=== PATIENT | female | born 1965 | race African-American/Black ===

== ENCOUNTER 2023-07-25 07:13 | Outpatient (RCR) | payer BC, SELFPAY ==
--- NOTE | 2023-07-25 08:26 | OTOPEVAL1 ---
Assessment and note entered by Adams Irizarry, OTHomer/Lorie, CHT Evaluation Information Assessment Status Evaluation Diagnosis (R) UE pain Subjective Information Patient reports intermittent forearm pains on the right, dominant UE. She works at [employer] in [employer] and spends 8 hrs/day on a computer. She has been experiencing pain on the dorsum of her right forearm. She is unable to say how long she's been having this pain. She reports it affects her arm use at work and at home. She's been having difficulties with cooking and cleaning . Reported Pain Level Pain Score 0: Self Report Additional Pain Score Comments Patient reports that at rest the pain in her forearm can get down to 0/10. She reports about every couple of days it increases to 7/10. Assessment OT Clinical Summary Patient referred to outpatient OT with right UE pain. Testing today was positive for radial nerve irritation as well as signs and symptoms of lateral epicondylitis. Educated on work station ergonomics as well as began home program for massage and stretching to the forearm to promote reduced pain and improved flexibility. She demonstrates excellent understanding. Continued skilled OT indicated to progress HEP as tolerated, use of modalities, manual therapy, postural strengthening, and may use splinting as intervention to reduce repetitive strain on the wrist/finger extensors. Plan of Care Interventions Therapeutic Exercise,Manual Therapy,Therapeutic Activities,Hot Pack/Cold Pack,Ultrasound OT Services Indicated Yes Treatment Frequency and 1x/week for 4 weeks Duration These treatments will address the objective and functional deficits as defined above. The patient will be advanced safely and appropriately in order for the patient to progress towards his/her prior level of function. Additional exercises will be introduced and as well as a comprehensive home exercise program upon discharge, if needed, ?to ensure carryover of functional gains achieved in the clinic. This treatment plan has been reviewed and agreement upon by the patient.
--- NOTE | 2023-07-25 08:27 | OPREHPOC ---
Outpatient Therapy Plan of Care This is a Multidisciplinary Plan of Care that may contain components documented by all disciplines (PT, OT, and ST.) OT Problem 1 OT Problem #1 Knowledge Deficit OT Goal 1 Goal 1. Patient to be independent with instructed materials. Target Visit 4 OT Problem 2 OT Problem #2 Pain OT Goal 1 Goal 1. Patient to report reduced pain at worst to 4/ 10 or less. Target Visit 4 OT Problem 3 OT Problem #3 Impaired Strength OT Goal 1 Goal 1. Patient to be able to complete right wrist extension strengthening with 1 lb. free weight x10 reps without pain. 2. Patient to be able to complete right logistician strengthening with at least yellow theraputty x5 minutes without pain. 3. Patient to be independent with proximal stability strengthening (shoulder and scapula). Target Visit 4
--- NOTE | 2023-08-18 14:00 | PCOTNOTE ---
Patient did not show up for scheduled appointment this date. Called patient who reports she forgot to call and cancel the appointment. States she wasn't feeling well. Reports she'll be here for her re-eval next .
--- NOTE | 2023-08-24 09:56 | OTOPDC ---
Assessment and note entered by REILLY Galvez/Lorie, T Discharge Summary 08/24/23 OT Clinical Summary Patient referred to outpatient OT with right arm/ hand pain, symptoms consistent with radial nerve irritation and lateral epicondylitis. She was educated on work station ergonomics as well as HEP for stretching and massage for the forearm. She has not shown to any appointments since the initial evaluation. Unable to contact her today. Discharging with goals not assessed.
== END 2023-08-24 13:06 | disposition home or self-care (01) ==
LOC: ANHOT 07:13
PROVIDERS: PCP Internal Medicine Infectious Disease; Visit Provider Plastic Surgery
DX: M79.631 Pain in right forearm (principal)
CPT/HCPCS: 97110; 97140; 97166; 99199